=== PATIENT | female | born 1965 | race Caucasian/White ===

== ENCOUNTER 2020-02-28 20:47 | Emergency (ER) | payer SELFPAY ==
--- NOTE | ~2020-02-28 | XR_ITS ---
EXAMINATION: XR chest 2V DATE: 02/28/2020 21:27 INDICATION: Dyspnea. TECHNIQUE: frontal and lateral views of the chest were obtained. COMPARISON: Chest radiograph dated 12/24/2005 FINDINGS: The lungs remain clear with no focal airspace opacities, pulmonary edema, pleural effusion or pneumot horax. The cardiomediastinal silhouette is normal. Mild scattered degenerative skeletal changes in th e spine and at both shoulders. IMPRESSION: 1. No acute cardiopulmonary disease. Reviewed, dictated and finalized at location A.
[2020-02-28 20:50] VITALS: BP 141/85; PULSE 80; RESP 22; TEMP 35.6; O2SAT 99
--- NOTE | 2020-02-28 21:00 | ED.GENADULT ---
HPI - General Adult General Chief complaint: Nausea/Vomiting/Diarrhea Stated complaint: alcohol detox Time Seen by Provider: 02/28/20 21:00 Source: patient Mode of arrival: ambulatory Limitations: no limitations History of Present Illness HPI narrative: Patient is a 54-year-old female who presents for evaluation of tremors, nausea and vomiting. Patient reports that she has longstanding history of alcohol abuse, is currently detoxing from alcohol, last drink was at 10 in the morning. Patient reports feeling tremulous, shaky, anxious. She reports numerous episodes of nonbilious, nonbloody emesis. No current chest pain or abdominal pain. She reports feeling somewhat short of breath. She states she has a history of aspiration pneumonia. Patient drinks 5 drinks daily over the past 2 weeks, does have history of alcohol withdrawal and had a period of sobriety prior to this. Patient denies any current headache, visual changes, no numbness. No history of delirium tremens. No history of seizures. Related Data Allergies Allergy/AdvReac Type Severity Reaction Status Date / Time No Known Allergies Allergy Mild Verified 06/19/03 19:25 Review of Systems Review of Systems: Narrative: CONSTITUTIONAL: Reports chills and feeling sweaty EYES: Denies visual changes, redness, or discharge. ENT: Denies rhinorrhea, congestion, sore throat, or otalgia. CARDIOVASCULAR: Denies chest pain, palpitations, or edema. RESPIRATORY: Denies cough, reports feeling dyspneic GASTROINTESTINAL: Reports nausea and vomiting, denies abd pain GENITOURINARY: Denies dysuria or hematuria. SKIN: Denies rash or itching. MUSCULOSKELETAL: Denies back pain, joint pain, reports myalgias NEUROLOGIC: Denies headache, numbness, or weakness. PSYCHIATRIC: Reports anxiety PMFSH Past Medical History Medical History (Updated 02/29/20 @ 01:14 by Alyssa Ramires MD) Alcohol abuse Depression Pneumonia Right wrist fracture Sleep apnea Surgical History Surgical History (Updated 02/28/20 @ 21:02 by Alyssa Ramires MD) H/O: hysterectomy Social History Social History (Updated 02/28/20 @ 21:03 by Alyssa Ramires MD) Alcohol intake: current Substance use: never Gender identity (if verbalized by the patient): Female Exam Narrative: Exam Narrative: GENERAL: Awake, alert, conversant, somewhat anxious appearing HEAD: Normocephalic, atraumatic. EYES: PERRLA and EOMI. ENT: Nares clear, no rhinorrhea or epistaxis. Mucous membranes moist. NECK: Supple. CHEST: No respiratory distress, breathing even and non labored, mild tachypnea HEART: Regular rate, sinus rhythm ABDOMEN:Non distended, non tender EXTREMITIES: Normal range of motion. No edema. SKIN: Warm, dry, no rash. NEURO:No focal deficits. Alert and oriented x3, no tremors Course Vital Signs Vital signs: Vital Signs Temperature 35.6 C L 02/28/20 20:50 Pulse Rate 80 02/28/20 20:50 Respiratory Rate 22 H 02/28/20 20:50 Blood Pressure 141/85 H 02/28/20 20:50 Pulse Oximetry 99 02/28/20 20:50 Temperature 36.8 C 02/28/20 23:53 Pulse Rate 88 02/28/20 23:53 Respiratory Rate 19 02/28/20 23:53 Blood Pressure 124/79 02/28/20 23:53 Pulse Oximetry 100 02/28/20 23:53 Medical Decision Making [facility] Narrative Medical decision making narrative: Patient presented for evaluation of nausea, vomiting in the setting of abstaining from alcohol intake since 10 AM this morning. Patient has no sign of delirium tremens, would not be within the window for this clinical condition. Patient is not clinically intoxicated. Her vital signs are stable. Patient is not tachycardic or tremulous. She has no abdominal pain. Laboratory results are reassuring. No severe leukocytosis, no severe electrolyte derangements. No sign of aspiration pneumonia on chest x-ray. Patient was given IV fluids, banana bag, small dose of Ativan and felt much improved. She does not have an elevated CIWA score. Patient was offe
--- NOTE | 2020-02-28 21:03 | ECG_ITS ---
Measurements Intervals [place] Rate: 76 P: 41 WA: 176 QRS: -19 QRSD: 109 T: 15 QT: 418 QTc: 471 Interpretive Statements SINUS RHYTHM BORDERLINE T WAVE ABNORMALITY- INFERIOR LEADS BORDERLINE ECG Electronically Signed On 02-29-2020 6:59:17 CDT by Pradip Wyman D.O.
[2020-02-28 21:05] LABS: Basophils Absolute Auto 0.1 K/mm3 (0.0-0.1); Basophils Percent Auto 0.8 % (0.2-1.2); Eosinophils Percent Auto 0.5 % (0-4.4); Hematocrit 39.4 % (37.0-47.0); Hemoglobin 13.1 g/dL (12.0-15.0); Immature Granulocyte Absolute 0.02 K/mm3 (0.00-0.031); Immature Granulocyte Percent A 0.3 % (0-0.5); Lymphocytes Absolute Auto 1.27 K/mm3 (0.9-3.2); Lymphocytes Percent Auto 16.6 % (18.3-44.2); Mean Corpuscular HGB Conc 33.2 g/dl (32-36); Mean Corpuscular Volume 90.2 fl (80-100); Mean Platelet Volume 10.3 fl (7.4-10.4); Monocytes Absolute Auto 0.5 K/mm3 (0.1-0.6); Neutrophils Absolute Auto 5.8 K/mm3 (1.3-6.7); Neutrophils Percent Auto 75.8 % (45.5-73.1); Platelet Count Result 152 k/mm3 (150-375); Red Blood Count 4.37 M/mm3 (4.2-5.4); Red Cell Distribution Width 15.1 % (11.5-14.5); White Blood Count 7.7 K/mm3 (4.5-10.0)
[2020-02-28 21:17] LABS: Alanine Aminotransferase 27 U/L (4-35); Albumin Level 5.1 g/dL (3.5-5.1); Alkaline Phosphatase 140 U/L (38-126); Aspartate Amino Transferase 78 U/L (14-36); Bilirubin,Total 1.5 mg/dL (0.2-1.3); Blood Urea Nitrogen 13 mg/dL (7-17); Calcium 9.3 mg/dL (8.4-10.2); Carbon Dioxide 12 mmol/L (22-30); Chloride 107 mmol/L (98-107); Estimated CRCL calculation 117 ml/min; Estimated Glomerular Filt Rate > 60; Glucose 119 mg/dL (65-105); Lipase 56 U/L (23-300); Sodium 141 mmol/L (137-145)
[2020-02-28 21:45] LABS: Magnesium 1.7 mg/dL (1.6-2.3); Phosphorus 4.2 mg/dL (2.5-4.5)
[2020-02-28] MEDS: ONDANSETRON INJ 4 MG/2 ML VIAL IV PUSH (21:46)
[2020-02-28] MEDS: SODIUM CHLORIDE 0.9% IV 1,000 ML 999 ML IV CONT (21:46)
[2020-02-28] MEDS: LORAZEPAM 0.5 MG TABLET PO (21:46)
[2020-02-28 21:50] LABS: Prothrombin Time 12.5 Seconds (11.1-14.7)
[2020-02-28 21:51] LABS: Partial Thromboplastin Time 28.3 SECONDS (22.3-36.8)
[2020-02-28 21:52] VITALS: BP 125/77; PULSE 76; RESP 18; O2SAT 100
[2020-02-28 21:57] LABS: Troponin I < 0.012 ng/mL (0.000-0.034)
[2020-02-28 22:08] LABS: Add Urine Microscopic? YES; Appearance Urine Clear (Clear); Bacteria Urine Trace /hpf; Bilirubin Urine Negative (Negative); Blood Urine 1+ (Negative); Color Urine Yellow (Yellow); Glucose Urine UA Negative (Negative); Ketones Urine 1+ mg/dL (Negative); Leukocyte Esterase Ur Trace LEU/UL (Negative); Mucus Urine Rare /lpf; Nitrate Urine Negative (Negative); Protein Urine 2+ mg/dL (Negative); Specific Grav Ur 1.018 (1.001-1.035); Squamous Epithelial Cell Urine Occasional /hpf (Few); Urobilinogen Urine Negative mg/dL (<2.0)
[2020-02-28 22:24] LABS: Amphetamine Screen Urine Negative (Negative); Barbiturate Screen Urine Negative (Negative); Benzodiazepines Screen Urine Negative (Negative); Cannabinoid Screen Urine Negative (Negative); Cocaine Screen Urine Negative (Negative); Methadone Screen Urine Negative (Negative); Opiate Screen Urine Negative (Negative); Phencyclidine Screen Urine Negative (Negative)
[2020-02-28 22:38] VITALS: BP 137/74; PULSE 81; RESP 19; O2SAT 100
[2020-02-28 23:53] VITALS: BP 124/79; PULSE 88; RESP 19; TEMP 36.8; O2SAT 100
--- NOTE | 2020-03-13 19:27 | PC.NURSE ---
LATE ENTRY This note is being entered to document information to the patient's record. The following information was omitted on [02/28/2020], Thiamine stopped at 2354.
== END 2020-02-28 23:54 | disposition home or self-care (01) ==
PROVIDERS: Emergency Provider Emergency Medicine
DX: E86.0 Dehydration (principal); F10.239 Alcohol dependence with withdrawal, unspecified; G47.30 Sleep apnea, unspecified; Y90.9 Presence of alcohol in blood, level not specified; R94.31 Abnormal electrocardiogram [ECG] [EKG]
CPT/HCPCS: 36415; 71046; 80053; 80307; 81001; 83690; 83735; 84100; 84484; 85025; 85610; 85730; 93005; 96361; 96365; 96375; 99284; A9270; J2405; J3411; J3475; J7030; J7121